=== PATIENT | female | born 1945 | race Hispanic/Latino ===

== ENCOUNTER 2019-07-20 11:07 | Outpatient (CLI) | payer MEDICARE ==
--- NOTE | 2019-07-20 14:58 | Cat Scan Report ---
CT ABDOMEN AND PELVIS WITH CONTRAST HISTORY: R11.2) Nausea with vomiting unspecified COMPARISON: 12/23/2014 TECHNIQUE: Axial CT images were obtained through the abdomen and pelvis after 100 cc of Omnipaque 300 intravenously. Sagittal and coronal reformatted images. All CT scans at this location are performed using CT dose reduction for ALARA by means of automated exposure control. FINDINGS: CT ABDOMEN: Lung Bases: Clear. Liver: No significant abnormality. Biliary: Cholecystectomy. No biliary dilatation. Spleen: No significant abnormality. Unenlarged. Pancreas: Mild fatty atrophy. No inflammatory changes. Adrenals: No significant abnormality. Kidneys: No significant abnormality. Lymphatics: No lymphadenopathy. Vasculature: Mild to moderate distal aortic calcifications. No aneurysm or stenosis. Bowel/Peritoneum: No significant abnormality. No free air. No free fluid. Appendectomy changes are galvez spected. CT PELVIS: : Hysterectomy changes. No pelvic mass, fluid collection or adenopathy. Osseous Structures: Osteopenia and degenerative changes throughout the spine and bilateral hips. Additional Findings: None IMPRESSION: No acute process is identified in the abdomen or pelvis. Surgical changes as described. Signer Name: Sai Gerber Jr, MD Signed: 07/20/2019 2:54 PM Workstation Name: [id number]
== END 2019-07-20 11:08 | disposition home or self-care (01) ==
LOC: CT 11:07
PROVIDERS: ATTEND Internal Medicine
DX: R11.2 Nausea with vomiting, unspecified (principal); M85.88 Other specified disorders of bone density and structure, other site; M16.0 Bilateral primary osteoarthritis of hip; I70.0 Atherosclerosis of aorta; Z90.710 Acquired absence of both cervix and uterus
CPT/HCPCS: 36415; 74177; 82565; 84520; Q9967